=== PATIENT | female | born 1955 | race Caucasian/White ===

== ENCOUNTER 2022-03-27 14:59 | Outpatient (CLI) | payer OTHER, SELFPAY ==
[2022-03-27 15:59] LABS: Chloride* 99 mmol/L (96-114)
[2022-03-27 16:00] LABS: Potassium* 4.3 mmol/L (3.6-5.1); Sodium* 136 mmol/L (135-149)
[2022-03-27 16:02] LABS: Creatinine* 0.7 mg/dL (0.5-1.5); Estimated Glomerular Filt Rate 94 ml/min
[2022-03-27 16:03] LABS: Blood Urea Nitrogen* 18 mg/dL (7-30); Calcium* 9.4 mg/dL (8.4-10.6); Carbon Dioxide* 29 mmol/L (20-32); Glucose* 127 mg/dL (60-115)
== END 2022-03-27 15:00 | disposition home or self-care (01) ==
LOC: NFLDREF 15:00
PROVIDERS: PCP Family Medicine; Visit Provider Family Medicine
DX: E26.81 Bartter's syndrome (principal); E87.6 Hypokalemia
CPT/HCPCS: 80048

== ENCOUNTER 2022-05-22 09:50 | Outpatient (CLI) | payer OTHER, SELFPAY | END 2022-05-22 09:51 | disposition home or self-care (01) | PROVIDERS: PCP Family Medicine; Visit Provider Family Medicine | DX: Z00.00 Encounter for general adult medical examination without abnormal findings (principal); I10 Essential (primary) hypertension; R73.01 Impaired fasting glucose; E78.5 Hyperlipidemia, unspecified; F32.A Depression, unspecified | CPT/HCPCS: 80053; 80061 ==

== ENCOUNTER 2022-05-27 13:00 | Outpatient (CLI) | payer OTHER, SELFPAY ==
--- NOTE | 2022-05-27 13:00 | CRLHL7_ITS ---
For Patients: As a result of the Century Cures Act, medical imaging exams and procedure reports are released immediately into your electronic medical record. You may view this report before your referring provider. If you have questions, please contact your health care provider. BILATERAL SCREENING MAMMOGRAM WITH COMPUTER-AIDED DETECTION AND TOMOSYNTHESIS TECHNIQUE: CC and MLO views were obtained. These mammographic images have been obtained using full-field digital technique. These mammographic images were interpreted with the benefit of computer-aided detection. Breast tomosynthesis was used in this interpretation. COMPARISON FILM: 03/31/21, 01/04/20, 11/04/18. FINDINGS: The breasts are heterogeneously dense, which may obscure small masses. IMPRESSION: There is no radiographic evidence for malignancy. ASSESSMENT: BI-RADS Category 1: Negative RECOMMENDATION: Routine screening mammogram in 1 year. A lay language report of this examination will be provided to the patient. WAYNE ESTEVEZ M.D. Diagnostic Radiologist [email or web address] Transcribed: 05/28/2022, 2:[address]/Dictated by: Wayne Estevez MD @ 05/28/2022 9:50:00 AM (Electronically Signed)
== END 2022-05-27 13:01 | disposition home or self-care (01) ==
LOC: MAMMO 13:01
PROVIDERS: PCP Family Medicine; Visit Provider Family Medicine
DX: Z12.31 Encounter for screening mammogram for malignant neoplasm of breast (principal); R92.2 Inconclusive mammogram
CPT/HCPCS: 77063; 77067

== ENCOUNTER 2023-08-13 13:12 | Outpatient (CLI) | payer OTHER, SELFPAY ==
--- OUTSIDE RECORDS SUMMARY | 2023-08-13 13:15 | XMS_ITS | Clinical Summary ---
Author Organization [facility] Address [address] [place] [address] Care Team Providers Care Glass Embosser Name Role Phone Elsewhere, Pcp Primary Care Provider Unavailabl e Source Comments Patient records contain information from all sites at [facility]. For routine questions regarding patient records, call [phone] during business hours, M-F 8:00 AM - 5:00 PM Central Time. Record requests for emergency care only can be directed to [phone] at any time.[facility] Allergies Active Allergy Reactions Criticality Noted Date Comments Cat Dander Other (see comments) 03/29/2013 House Dust Other (see comments) 03/29/2013 Medications Medication Sig Dispensed Refills Start Date End Date Status cholecalciferol (VITAMIN D3) 50 mcg (2,000 Unit) capsule Take 2,000 Units by mouth daily. Active acetaminophen (TYLENOL) 325 mg tablet Take 325-650 mg by mouth every 6 (six) hours as needed for pain. 03/31/2013 Active clonazePAM (KlonoPIN) 0.5 mg tablet Take 0.25 mg by mouth every morning. 08/05/2009 Active ibuprofen (ADVIL,MOTRIN) 200 mg tablet Take 200-600 mg by mouth every 6 (six) hours as needed for pain. 03/31/2013 Active Lacto.acidophilus-Bi f.animalis 32 billion cell capsule Take 1 capsule by mouth daily. 09/09/2016 Active metoprolol succinate (TOPROL-XL) 25 mg 24 hr tablet Take 12.5 mg by mouth daily. 12/23/2006 Active potassium chloride (KLOR-CON) 20 mEq packet USE 3 PACKETS DIRECTED THREE TIMES DAILY 08/08/2021 Active rosuvastatin (CRESTOR) 5 mg tablet Take 5 mg by mouth daily. 03/11/2021 Active ubiquinone (COENZYME Q10) 100 mg tablet Take 100 mg by mouth daily. Active calcium carbonate-vitamin D3 1,250 mg (500 mg calcium)-5 mcg (200 Unit) per tablet Take 1 tablet by mouth daily with breakfast. Active multivitamin capsule Take 1 capsule by mouth daily. Active PARoxetine (PAXIL) 20 mg tablet Take 20 mg by mouth daily. 12/12/2021 Active tretinoin (RETIN-A) 0.05 % cream Apply 1 application topically daily as needed. Apply to face. (Tends to use about once weekly) Active melatonin 1 mg tablet Take 1 mg by mouth at bedtime. Active biotin 5,000 mcg tablet,disintegratin g Dissolve 5,000 mcg in the mouth daily. Active magnesium oxide (MAG-OX) 400 mg (241.3 mg magnesium) tablet Take 400 mg by mouth 2 (two) times a day before breakfast and dinner. Active vitamin A-vitamin C-vit E-min tablet Take 1 tablet by mouth daily. 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 Specified Anxiety Disorders 03/30/2013 Hypokalemia 03/23/2013 Hypertension Essential Primary 06/13/2012 Family History Medical History Relation Name Comments Melanoma Daughter Mita Hyperlipidemia Father Truong Kidney cancer Father Truong Anxiety disorder Mother Marie Depression Mother Marie Ovarian cancer Mother Marie Parkinson disease Mother Marie Psychiatric Mother Marie Skin cancer Mother Marie Suicide Attempts Mother Marie Coronary artery disease Paternal Grandfather HW Relation Name Status Comments Daughter Mita Father Truong Mother Marie Paternal Grandfather HW Social History Tobacco Use Types Packs/Day Years Used Date Smoking Tobacco: Never Smokeless Tobacco: Never Tobacco Cessation:Counseling Given: Not Answered Alcohol Use Standard Drinks/Week Comments Never 0 (1 standard drink = 0.6 oz pur e alcohol) Humiliation, Afraid, Rape, and Kick questionnair e Answer Date Recorded Within the last year, have y ou been afraid of your partner or ex-partner? No 01/09/2022 Within the last year, have y ou been humiliated or emotionally abused in other ways by your partner or ex-partner? No Within the last year, have y ou been kicked, hit, slapped, or otherwise physically hurt by your partner or ex-partner? No 01/09/2022 Within the last year, have y ou been raped or forced to have any kind of sexual activity by your partner or ex-partner? No 01/09/2022 Social Connection and Isolation Panel [NHANES] A nswer Date Recorded In a typical week, how many times do you talk on the phone with family, friends, or neighbors? Three times a week 01/10/20 22 Frequency of Social Gatherin gs with Friends and Family Not on file 01/09/2022 How often do you attend chur ch or sikh services? 1 to 4 times per year 01/09/2022 Do you belong to any clubs o r organizations such as yarsanism groups, unions, fraternal or athletic groups, or school groups? No 01/09/2022 How often do you attend meet ings of the clubs or organizations you belong to? Never 01/09/2022 Are you , , di vorced, , never , or living with a partner? 01/09/2022 AUDIT-C Answer Date Recorded Q1: How often do you have a drink containing alc ohol? Never 01/09/2022 Average Number of Drinks Not on file 022 Frequency of Binge Drinking Not on file 12/14 Overall Financial Resource Strain (CARDIA) Answe r Date Recorded How hard is it for you to pa y for the very basics like food, housing, medical care, and heating? Not very hard 01/09/2022 [facility] [place] of Occupat ional Health - Occupational Stress Questionnaire Answer Date Recorded Do you feel stress - tense, restless, nervous, or anxious, or unable to sleep at night because your mind is troubled all the time - these days? Not at all 01/09/2022 Exercise Vital Sign Answer Date Recorde d On average, how many days pe r week do you engage in moderate to strenuous exercise (like a brisk walk)? 5 days 01/09/2022 On average, how many minutes do you engage in exercise at this level? 60 min 01/09/2022 Hunger Vital Sign Answer Date Recorded Within the past 12 months, y ou worried that your food would run out before you got the money to buy more. Never true 01/10/20 Within the past 12 months, t he food you bought just didn't last and you didn't have money to get more. Never true 01/09/2022 PRAPARE - Transportation Answer Date Re corded In the past 12 months, has l ack of transportation kept you from medical appointments or from getting medications? No 12/14 In the past 12 months, has l ack of transportation kept you from meetings, work, or from getting things needed for daily living? No 01/09/2022 Housing Stability Vital Sign Answer Giovanni e Recorded In the last 12 months, was t here a time when you were not able to pay the mortgage or rent on time? No 01/09/2022 In the last 12 months, how many places have you lived? 1 01/09/2022 In the last 12 months, was t here a time when you did not have a steady place to sleep or slept in a penitentiary (including now)? No 01/09/2022 Nutrition Answer Date Recorded Nutrition: EVOO Fat Source Yes 01/09 On average, how many serving s of fruits and vegetables do you eat per day (serving size is equal to 1 cup or approximately the size of a tennis ball)? 4-5 01/09/2022 Dental Answer Date Recorded Dental: Regular Dentist Yes 01/10/20 Employment Answer Date Recorded Employment status Unemployed/not in e paid workforce and NOT seeking employment 01/09/2022 Education Answer Date Recorded What is the highest level of school you have completed or the highest degree you have received? Bachelor's degree (e.g., BA, AB, BS) 01/09/2022 Sex and Gender Information Value Date Recorded Sex Assigned at Not on file Gender Identity Female 08/19/2021 8:21 AM CDT Sexual Orientation Straight 08/19/2021 8: 21 AM CDT Last Filed Vital Signs Vital Sign Reading Time Taken Comments Blood Pressure 111/54 01/14/2022 10:10 AM CDT Pulse 57 01/14/2022 10:09 AM CDT Temperature 36.9 ??C (98.4 ??F) 01/14/2022 10:10 AM C DT Respiratory Rate 16 01/14/2022 8:05 AM CDT Oxygen Saturation 97% 01/14/2022 10:10 AM CDT Inhaled Oxygen Concentration - - Weight 75.1 kg (165 lb 9.1 oz) 01/12/2022 7:17 A M CDT Height 174.5 cm (5' 8.7) 01/12/2022 7:17 AM CDT Body Mass Index 24.66 01/12/2022 7:17 AM CDT Plan of Treatment Health Maintenance Due Date Last Done Comments CT Colonography 1953 Colonoscopy 1955 FIT 1955 Hepatitis C Screening 1955 Mammogram 1955 Office Visit for Blood Press ure Check / Re-check 01/09/2023 01/09/2022 Depression Screening (Annual PHQ-2) 03/15/2023 Fall Risk Screen (Annual) 03/15/2023 COVID-19 Vaccine (2022-2 4 season) 2023 03/16/2023, 02/21/2022, 10/07/2021, Additional history exists Pneumococcal vaccine (65+ ye ars) (3 of 3 - PPSV23 or PCV20) 09/21/2023 09/20/2018, 08/25/2017 Cologuard 04/30/2024 04/30/2021 Colorectal Cancer Screening 04/30/2024 Fasting Glucose for Diabetes Screening 01/13/2025 01/13/2022, 01/13/2022, 01/12/2022, Additional history exists DTaP,Tdap,and Td Vaccines (2 - Td or Tdap) 08/26/2027 08/25/2017 Zoster Vaccines Completed 05/27/2018, 08/25/2017 Bone Density Scan (Osteoporo sis Screen) Discontinued 08/19/2021 Influenza Vaccine Completed 03/16/2023, , 01/28/2021, Additional history exists Procedures Procedure Name Priority Date/Time Associated Diagnosis Comments BASIC METABOLIC PANEL, S/P Routine 01/13/2022 6:26 AM CDT from Last 3 Months or Most Recently Relevant to Health Maintenance Results * Basic Metabolic Panel (01/13/2022 6:26 AM CDT) Potassium, S 4.0 3.6 - 5.2 mmol/L 01/13/2022 7:43 AM CDT DTL Sodium, S 136 135 - 145 mmol/L 01/13/2022 7:43 AM CDT DTL Chloride, S 98 98 - 107 mmol/L 01/13/2022 7:43 AM CDT DTL Bicarbonate, S 28 22 - 29 mmol/L 01/13/2022 7:43 AM CDT DTL Anion Gap 10 7 - 15 01/13/2022 7:43 AM CDT DTL BUN (Blood Urea Nitrogen), S 19 6 - 21 mg/dL 01/13/2022 7:43 AM CDT DTL Creatinine 0.87 0.59 - 1.04 mg/dL 01/13/2022 7:43 AM CDT DTL Estimated GFR (eGFR) 73 >=60 mL/min/BSA 01/13/2022 7:43 AM CDT DTL Comment: Estimated GFR calculated using the 2020 CKD_EPI creatinine equation. Calcium, Total, S 8.9 8.8 - 10.2 mg/dL 01/13/2022 7:43 AM CDT DTL Glucose, S 95 70 - 140 mg/dL 01/13/2022 7:43 AM CDT DTL Blood (Blood, Venous) 01/13/2022 6:26 AM CDT 01/13/2022 7:22 AM CDT Darlene Strong Capp, M.D. LAB BLOOD ADD-ON [facility] [address] [place] [address], [facility] DTL [facility] [address] [place] [address] from Last 3 Months or Most Recently Relevant to Health Maintenance Advance Directives For more information, please contact: [phone] * Full Code (Latest Code Status on File) Date Activated Date Inactivated Comments 01/12/2022 2:16 PM 01/14/2022 1:03 PM Question Answer Comments Full Code: Not Discussed Due to: Not medically appropriate * Full Code Date Activated Date Inactivated Comments 01/12/2022 6:47 AM 01/12/2022 2:16 PM Question Answer Comments Full Code: Not Discussed Due to: Patient not available Care Teams Glass Embosser Relationship Specialty Start Date End Date Elsewhere, Pcp PCP - General Internal Medicine 01/08/22
--- OUTSIDE RECORDS SUMMARY | 2023-08-13 13:15 | XMS_ITS | Clinical Summary ---
Author Organization [facility] Address [address] [place] [address]. [place] [address] Care Team Providers Care Program Therapist Name Role Phone Wayne Durand MD Primary Care Provider [phone] Social History Tobacco Use Types Packs/Day Years Used Date Smoking Tobacco: Never Assessed Sex and Gender Information Value Date Recorded Sex Assigned at Not on file Gender Identity Not on file Sexual Orientation Not on file Plan of Treatment Not on file Care Teams Program Therapist Relationship Specialty Start Date End Date Wayne Durand MD [facility] [address] [place] [address] [place] [place] [phone] PCP - General Nephrology 10/14/12
--- OUTSIDE RECORDS SUMMARY | 2023-08-13 13:15 | XMS_ITS | Continuity of Care Document ---
Author Organization [facility] Address [address] [address] [place] [address] Phone Care Team Providers Care Ip Paralegal Name Role Phone Inocente French MD Unavailable Unavailable Medications Medication Instructions Dosage Effective Dates (start - stop) Status Comments MiralaxBisacodylMagCit Colon Prep Use as directed - Active MoviPrep 100 g-7.5 g-2.691 g-4.7 g Oral Powder Packet Use as directed - Active Advance Directives Directive Yes / No Effective Date File Name No Information Encounters Encounter Description Practice Location Reason(s) For Visit Diagnoses Date Provider Providers Copied on Encounter [facility], [address] [address], [place], [place], [id number], tel:[phone] [facility] No Information [address] [facility], [place], [place], [id number], . tel:[phone] [facility], [address] [address], [place], [place], [id number], [place] tel:[phone] No Information 7 No Information Referring Provider: Wayne Rousseau, [address], [place], [address]. tel:[phone] [facility], [address] [address], [place], [place], [id number], [place] tel:[phone] [facility] No Information 3 No Information Referring Provider: Wayne Rousseau, [address], [place], [address]. tel:[phone] Family History Family Member Type Diagnosis Age At Onset No Information Payers Payer name Insurance type Covered green party ID Authoriza tion(s) No Information Social History Type Description Quantity Date Captured Comments Sex Female Smoking Status No Information Chief Complaint And Reason For Visit No Information Reason For Referral Reason For Referral No Information History Of Present Illness Encounter Date Complaint History Of Prese nt Illness No Information Functional Status Date Functional Assessmen t No Information Instructions Date Instruction Additional Infor mation No Information Assessments Type Assessment Date No Information Patient Care Teams Name Effective Dates (start - stop) Status Members No Information
--- OUTSIDE RECORDS SUMMARY | 2023-08-13 13:15 | XMS_ITS | Clinical Summary ---
Author Organization [facility] Address [address] [place] [address] Phone Care Team Providers Care Temperature Regulator Pyrometer Name Role Phone Mita Yoo MD Primary Care Provider [phone] Allergies Active Allergy Reactions Criticality Noted Date Comments Cat Hair Extract Other (see comments) 4 Dust Mite Extract Runny nose 03/29/2013 Medications Medication Sig Dispensed Refills Start Date End Date Status clonazePAM (KlonoPIN) 0.5 MG tablet Take 0.25 mg by mouth 1 (one) time each day 06/13/2012 Active PARoxetine (PAXIL) 20 MG tablet Take 10 mg by mouth 1 (one) time each day 06/13/2012 Active Multiple Vitamin (MULTIVITAMIN) capsule Take 1 daily 0 09/09/2016 Active Multiple Vitamins-Minerals (OCUVITE-LUTEIN) capsule Take by mouth daily 0 09/09/2016 Active Krill Oil [place]-3 500 MG capsule Take 1 tab daily 0 06/13/2012 Active acetaminophen (TYLENOL) 325 MG tablet Take 325-650 mg by mouth if needed 03/31/2013 Active cholecalciferol (VITAMIN D-3) 50 MCG (1999 UT) capsule Take 2,000 Units by mouth 1 (one) time each day Active ibuprofen (ADVIL) 200 MG tablet Take 200-600 mg by mouth if needed 03/31/2013 Active Magnesium 250 MG tablet Take 500 mg by mouth in the morning and 500 mg in the evening. Active rosuvastatin (CRESTOR) 5 MG tablet Take 5 mg by mouth 1 (one) time each day Active metoprolol succinate XL (TOPROL-XL) 25 MG 24 hr tabletIndications:Es sential (primary) hypertension Take 0.5 tablets (12.5 mg total) by mouth 1 (one) time each day 45 tablet 3 08/20/2022 08/20/2023 Active potassium chloride (KLOR-CON) 20 MEQ packetIndications:Ba rtter's syndrome (CMS-HCC) Take 60 mEq by mouth in the morning and 60 mEq in the evening and 60 mEq before bedtime. 810 packet 3 08/20/2022 08/20/2023 Active Active Problems Problem Noted Date Diagnosed Date Bartter's syndrome 09/09/2016 Hypokalemia 03/23/2013 Hypomagnesemia 03/23/2013 Essential (primary) hypertension 06/13/2012 Immunizations Name Administration Dates Next Due Influenza (IM) Preservative Free 01/16/2013 Family History Medical History Relation Comments Malignant neoplastic disease Father Malignant neoplastic disease Mother Heart disease Relative Relation Status Comments Father Mother Relative Social History Tobacco Use Types Packs/Day Years Used Date Smoking Tobacco: Never Smokeless Tobacco: Never Alcohol Use Standard Drinks/Week Comments Yes 0 (1 standard drink = 0.6 oz pur e alcohol) Alcoholic Drinks/day: rare Sex and Gender Information Value Date Recorded Sex Assigned at Not on file Gender Identity Not on file Sexual Orientation Not on file Last Filed Vital Signs Vital Sign Reading Time Taken Comments Blood Pressure 132/67 08/20/2022 11:28 AM CDT Pulse 58 08/20/2022 11:28 AM CDT Temperature 36.8 ??C (98.3 ??F) 08/20/2022 1 1:28 AM CDT Respiratory Rate 16 07/23/2021 2:19 PM CDT Oxygen Saturation 93% 08/20/2022 11: 28 AM CDT Inhaled Oxygen Concentration - - Weight 78.8 kg (173 lb 12.8 oz) 07/23/2021 2:19 PM CDT Height 170.2 cm (5' 7) 08/20/2022 11:2 8 AM CDT Body Mass Index 27.22 07/23/2021 2:19 PM CDT Plan of Treatment Upcoming Encounters Date Type Department Care Team (Late st Contact Info) Description 10/20/2023 3:30 PM MDT Office Visit [facility] [address] [facility] [address] [place] [address] Wayne Durand MD [address] [facility] [address] [place] [address] Health Maintenance Due Date Last Done Comments Pneumococcal PPSV23/PCV13 65 + Years / High and Highest Risk (2 of 4 - PPSV23 or PCV20) 11/15/2018 09/20/2018 Influenza Vaccine (Season Ended) 2023 11/14/2019, 11/07/2019, 01/04/2018, Additional history exists Insurance Payer Benefit Plan / Group Subscriber ID Effective Dates Phone Address Type PM INTERFACED INSURANCE PM INTERFACED INSURANCE - OPEN 2021-Prese nt [address] [place] [address] PM INTERFACED INSURANCE PM INTERFACED INSURANCE - OPEN 2012-03/[birth year] [address] [address] [place] [address] Care Teams Temperature Regulator Pyrometer Relationship Specialty Start Date End Date Mita Yoo MD [address] [place] [address] PCP - General Internal Medicine 05/24/20
--- OUTSIDE RECORDS SUMMARY | 2023-08-13 13:15 | XMS_ITS | Referral Summary ---
Author Organization [facility] Address [address] [place] [address] Care Team Providers Care Tape Edge Machine Operator Name Role Phone Elsewhere, Pcp Primary Care Provider Unavailabl e Source Comments Patient records contain information from all sites at [facility]. For routine questions regarding patient records, call [phone] during business hours, M-F 8:00 AM - 5:00 PM Central Time. 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 1 to 4 times per year 01/09/2022 Do you belong to any clubs o r organizations such as islam groups, unions, fraternal or athletic groups, or [...] care, and heating? Not very hard 01/09/2022 [facility] [place] of Occupat ional Health - Occupational Stress [...] money to buy more. Never true 01/10/20 22 Within the past 12 months, t he [...] place to sleep or slept in a jail (including now)? No 01/09/2022 Nutrition Answer Date Recorded Nutrition: EVOO Fat Source Yes 01/09 On average, how many serving s of fruits and vegetables do you eat per day (serving size is equal to 1 cup or approximately the size of a tennis ball)? 4-5 01/09/2022 Dental Answer Date Recorded Dental: Regular Dentist Yes 01/10/20 Employment Answer Date Recorded Employment status Unemployed/not in th e paid workforce and NOT seeking employment [...] 01/12/2022 7:17 AM CDT Plan of Treatment Not on file Procedures Procedure Name Priority Date/Time Associated Diagnosis [...] Darlene Strong Capp, M.D. LAB BLOOD ADD-ON [facility] [address] [place] [address], [place] DTL [facility] [address] [place] [address] from Last 3 Months or Most Recently Relevant to Health Maintenance Advance Directives For more information, please contact: [phone] * Full Code (Latest Code Status on File) Date Activated Date Inactivated Comments 01/12/2022 2:16 PM 01/14/2022 1:03 PM Question Answer Comments Full Code: Not Discussed Due to: Not medically appropriate * Full Code Date Activated Date Inactivated Comments 01/12/2022 6:47 AM 01/12/2022 2:16 PM Question Answer Comments Full Code: Not Discussed Due to: Patient not available Care Teams Tape Edge Machine Operator Relationship Specialty Start Date End Date Elsewhere, Pcp PCP - General Internal Medicine 01/08/22
--- OUTSIDE RECORDS SUMMARY | 2023-08-13 13:15 | XMS_ITS | Clinical Summary ---
Author Organization [facility] Address [place], [place] [address] Care Team Providers Care Materials Management Supervisor Name Role Phone Mita Yoo MD Primary Care Provider + Allergies Active Allergy Reactions Criticality Noted Date Comments Cats (Fur, Dander, Saliva) Runny Nose 4 House Dust Runny Nose 03/29/2013 Mite Extract Runny Nose 03/29/2013 Medications Medication Sig Dispensed Refills Start Date End Date Status paroxetine (PAXIL) 20 mg tabletIndications :Other general symptoms(780.99) Take 1 tablet by mouth every morning. 0 08/05/2009 Active clonazepam (KLONOPIN) 0.5 mg tabletIndications :Other general symptoms(780.99) Take 1 tablet by mouth 2 times daily if needed. 0 08/05/2009 Active potassium chloride (KLOR-CON 8) 8 mEq CR tabletIndications :Other general symptoms(780.99) Take 1 tablet by mouth once daily with a meal. 0 08/05/2009 Active multivitamin (MVI) tablet Take 1 tablet by mouth once daily. Active magnesium 250 mg tab Take 250 mg by mouth once daily. Active metoprolol (LOPRESSOR) 25 mg tablet Take 25 mg by mouth 2 times daily. Active omega-3 fatty acids-vitamin E (FISH OIL) 1,000 mg cap Take 1 capsule by mouth. Active SELENIUM ORAL Take 1 Tab by mouth once daily. Active cholecalciferol (VITAMIN D-3) 2,000 unit capsule Take 2,000 Units by mouth once daily. Active vitamin B complex (B COMPLEX 1) tablet Take 1 tablet by mouth once daily. Active UBIDECARENONE (COENZYME Q10) 100 mg tab Take 1 capsule by mouth once daily. Active BETA-CAROTENE,A, W-C & E/MIN (OCUVITE ORAL) Take 1 tablet by mouth once daily. Active acetaminophen (TYLENOL) 325 mg tablet Take 1-2 tablets by mouth every 4 hours if needed for Pain. Max acetaminophen dose: 4000mg in 24 hrs. 100 tablet 0 03/31/2013 Active ibuprofen (ADVIL; MOTRIN) 200 mg tablet Take 1-3 tablets by mouth every 6 hours if needed for Pain. 100 tablet 0 03/31/2013 Active rosuvastatin (CRESTOR) 5 mg tablet Take 5 mg by mouth. 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 03/30/2013 Urinary, incontinence, stress female 02/07/2013 Overview: With low valsalva leak point pressures on multichannel urodynamics Fibroids 02/07/2013 Family history of ovarian cancer 02/07/2013 Immunizations Name Administration Dates Next Due Influenza, High-dose Inactivated 12/27/2018 Influenza, IIV3 (Age >=3 years) 01/25/20 14,01/15/2013,04/01/2012,2009,02/19/2003 Influenza, IIV4 11/14/2019,11/07/2019,01/04/2018 Influenza, Inactivated AIIV4 (Age 65+ Years) Preserv Free 01/28/2021 Influenza,CCIIV4 PRESERV FREE 01/14/2017 Pneumococcal Poly,23-Valent (Pneumovax) 08/25/2017 Pneumococcal conj 13-Valent (Prevnar 13) 09/20/2018 Tdap 08/25/2017 Zoster (Shingrix-RZV, recombinant) 05/27/2018, Family History Medical History Relation Name Comments Hypertension Father Cancer-ovarian Mother Other Mother Parkinson's Thyroid Disease Sister hypothyroid Cancer-breast No Family History Cancer-colon No Family History Cancer-prostate No Family History Relation Name Status Comments Father Mother Sister Social History Tobacco Use Types Packs/Day Years Used Date Smoking Tobacco: Never Smokeless Tobacco: Never Alcohol Use Standard Drinks/Week Comments Yes 0 (1 standard drink = 0.6 oz pur e alcohol) rare Sex and Gender Information Value Date Recorded Sex Assigned at Not on file Gender Identity Not on file Sexual Orientation Not on file Obstetrics History Last Filed Vital Signs Vital Sign Reading Time Taken Comments Blood Pressure 127/69 07/14/2021 1:33 PM CDT Pulse 59 07/14/2021 1:33 PM CDT Temperature 36.7 ??C (98.1 ??F) 07/14/2021 1:33 PM CD T Respiratory Rate 16 03/30/2013 11:00 PM SENIOR MEDICAL BILLING SPECIALIST Oxygen Saturation 94% 03/30/2013 11:00 PM SENIOR MEDICAL BILLING SPECIALIST Inhaled Oxygen Concentration - - Weight 76.2 kg (168 lb) 07/14/2021 1:33 PM CDT Height 170.2 cm (5' 7) 07/14/2021 1:33 PM CDT Body Mass Index 26.31 07/14/2021 1:33 PM CDT Plan of Treatment Health Maintenance Due Date Last Done Comments Depression screening for age 12+ 1965 Hepatitis C screening for ag e 18-79 07/12/1971 Colonoscopy through age 75 1998 Lipids for age 45-75 1998 Mammogram for age 45-75 07/25/2013 07/26/19, 04/02/2011, 09/06/2007, Additional history exists DEXA/DXA scan for age 65+ 2018 04/02/2011 BMI (ht and wt on same day) for age 18+ 07/14/2022 07/14/2021 COVID-19 vaccine series ( season) 2022 01/28/2021, 05/01/2020, 04/10/2020 Pneumococcal series for age 65+ (3 of 3 - PPSV23 or PCV20) 09/21/2023 09/20/2018, 08/25/2017 Influenza for age 65+ 11/14/2023 01/28/2021 , 11/14/2019, 11/07/2019, Additional history exists Tetanus booster 08/26/2027 08/25/2017 Tdap Completed 08/25/2017 Zoster (shingles) series for age 50+ Completed 05/27/2018, 08/25/2017 Medical Devices Implanted Type Area Media Law Faculty Member Device Identifier Shelf Expiration Date Model / Serial / Lot Sldino [id number] - [id number] Implanted:Qty: 1 on 03/30/2013 at [facility] N/A: Urethra [facility] [id number]# / / [id number] Procedures Procedure Name Priority Date/Time Associated Diagnosis Comments XR MAMMO BILAT SCREEN FFDM (IA) Routine 07/25/2012 1:36 PM CDT Other screening mammogram XR DXA BONE DENSITY 2 SITES AXIAL Routine 04/02/2011 2:24 PM SENIOR MEDICAL BILLING SPECIALIST Menopausal symptoms from Last 3 Months or Most Recently Relevant to Health Maintenance Results * XR MAMMO BILAT SCREEN FFDM (07/25/2012 1:36 PM CDT) Anatomical Region Laterality Modality BREASTS, Breast Left, Breast Right Bilateral Mammography Impressions 07/25/2012 1:58 PM CDT ??There is no radiographic evidence for malignancy. ??Recommend annual mammograms. A lay language report of this examination will be provided to the patient. MAMMOGRAM ASSESSMENT: ??ACR 1 Negative Narrative 07/25/2012 1:58 PM CDT XR MAMMO BILAT SCREEN FFDM [G0202.0] CLINICAL HISTORY: ??This is an asymptomatic 57 y.o. patient. INDICATION FOR EXAM: Mammogram Screening. TECHNIQUE: CC & MLO views were obtained. ??This digital study was evaluated with the assistance of Computer-Aided Detection. ?? COMPARISON FILM: Yes 04/02/11 [facility] 09/06/07 [facility] FINDINGS: ??Mammographically, the breast tissue has scattered fibroglandular densities (approximately 25% - 50% glandular). ??There are no dominant masses, suspicious micro calcifications or areas of architectural distortion. Procedure Note Tasha Durant MD - 07/25/2012 XR MAMMO BILAT SCREEN FFDM [G0202.0] CLINICAL HISTORY: This is an asymptomatic 57 y.o. patient. INDICATION FOR EXAM: Mammogram Screening. TECHNIQUE: CC & MLO views were obtained. This digital study was evaluatedwith the assistance of Computer-Aided Detection. COMPARISON FILM: Yes 04/02/11 [facility] 09/06/07 [facility] FINDINGS: Mammographically, the breast tissue has scatteredfibroglandular densities (approximately 25% - 50% glandular). There areno dominant masses, suspicious micro calcifications or areas ofarchitectural distortion. IMPRESSION: There is no radiographic evidence for malignancy. Recommendannual mammograms. A lay language report of this examination will be provided to the patient. MAMMOGRAM ASSESSMENT: ACR 1 Negative Laura Bowling MD MAMMO * XR DEXA BONE DENSITY 2 SITES (04/02/2011 2:24 PM SENIOR MEDICAL BILLING SPECIALIST) Anatomical Region Laterality Modality Spine, HIPS, HIPL, HIPR Bone Den sitometry Impressions 04/05/2011 6:26 PM SENIOR MEDICAL BILLING SPECIALIST Normal findings with no increased fracture risk identified. The scan details are available in the patient? s chart on [employer]. A new tool has been developed which may be very helpful for your patients. It is the WHO Fracture Risk Assessment Tool and it calculates the 10 year probability of fracture. ??This is for patients who are not being treated, to help in the decision of when to treat. ??More information and the calculation tool can be found at this website: ?? http://www.shef.ac.uk/FRAX/ Please note: 1. Advancing age is an independent risk factor from low bone mineral density for fragility fracture. 2. In the hip the lowest T-score of the total hip or femoral neck is used. 3. For comparison with previous studies L1 to L4 and the total hip are used because larger areas give better precision. 4. If the BMD has increased or is stable compared to previous studies, the patient is responding satisfactorily according to the International Society for Clinical Densitometry (ISCD). 5. General recommendations for follow-up studies for patients with abnormal bone mineral density: ??Typically one year after initiation or change in therapy is appropriate, with longer intervals once therapeutic effect is established. ??In conditions associated with rapid bone loss, such as glucocorticoid therapy, testing more frequently is appropriate. 6. The International Society for Clinical Densitometry has changed the criteria and now includes perimenopausal women with this data base. Violette Perdomo MD. Breast/Diagnostic Radiologist [facility] BAT/ls Narrative 04/05/2011 6:26 PM SENIOR MEDICAL BILLING SPECIALIST DXA BONE MINERAL DENSITY, 04/02/2011 CLINICAL HISTORY: ??This is a 55-year-old female patient. RISK FACTORS FOR LOW BONE MINERAL DENSITY: ??The patient has estrogen deficiency. TECHNIQUE: ??The patient was scanned on a [employer]pw scanner, fast array scan mode. ??The study was technically adequate. The following sites were used for analysis: ??PA lumbar spine: ??L1 to L4, RIGHT hip: ??Femoral neck, LEFT hip: ??Femoral neck. FINDINGS: BMD T-Score Z-Score Lumbar Spine (L1 to L4) 1.357 g/cm2 +1.5 +1.8 RIGHT Hip (Femoral neck) 1.246 g/cm2 +1.5 +2.2 LEFT Hip (Femoral neck) 1.193 g/cm2 +1.1 +1.8 Procedure Note Violette Perdomo MD - 04/05/2011 DXA BONE MINERAL DENSITY, 04/02/2011 CLINICAL HISTORY: This is a 55-year-old female patient. RISK FACTORS FOR LOW BONE MINERAL DENSITY: The patient has estrogendeficiency. TECHNIQUE: The patient was scanned on a [employer]pw scanner, fastarray scan mode. The study was technically adequate. The following siteswere used for analysis: PA lumbar spine: L1 to L4, RIGHT hip: Femoralneck, LEFT hip: Femoral neck. FINDINGS: BMD T-Score Z-Score Lumbar Spine (L1 to L4) 1.357 g/cm2 +1.5 +1.8 RIGHT Hip (Femoral neck) 1.246 g/cm2 +1.5 +2.2 LEFT Hip (Femoral neck) 1.193 g/cm2 +1.1 +1.8 IMPRESSION: Normal findings with no increased fracture risk identified. The scan details are available in the patient? s chart on [employer]. A new tool has been developed which may be very helpful for your patients.It is the WHO Fracture Risk Assessment Tool and it calculates the 10 yearprobability of fracture. This is for patients who are not being treated,to help in the decision of when to treat. More information and thecalculation tool can be found at this website:http://www.shef.ac.uk/FRAX/ Please note: 1. Advancing age is an independent risk factor from low bone mineraldensity for fragility fracture. 2. In the hip the lowest T-score of the total hip or femoral neck is used. 3. For comparison with previous studies L1 to L4 and the total hip areused because larger areas give better precision. 4. If the BMD has increased or is stable compared to previous studies, thepatient is responding satisfactorily according to the InternationalSociety for Clinical Densitometry (ISCD). 5. General recommendations for follow-up studies for patients withabnormal bone mineral density: Typically one year after initiation orchange in therapy is appropriate, with longer intervals once therapeuticeffect is established. In conditions associated with rapid bone loss,such as glucocorticoid therapy, testing more frequently is appropriate. 6. The International Society for Clinical Densitometry has changed thecriteria and now includes perimenopausal women with this data base. Violette Perdomo MD. Breast/Diagnostic Radiologist [facility] BAT/ls Laura Bowling MD DEXA from Last 3 Months or Most Recently Relevant to Health Maintenance Advance Directives * Full Code (Latest Code Status on File) Date Activated Date Inactivated Comments 03/30/2013 7:41 AM 03/31/2013 6:27 PM Care Teams Materials Management Supervisor Relationship Specialty Start Date End Date Mita Yoo MD [address] [place] [address] PCP - General Family Practice 07/03/21
--- OUTSIDE RECORDS SUMMARY | 2023-08-13 13:15 | XMS_ITS | Referral Summary ---
Author Organization [facility] Address [address] [place] [address]. [place] [address] Care Team Providers Care Forestry Consultant Name Role Phone Wayne Durand MD Primary Care Provider [phone] Social History Tobacco Use Types Packs/Day Years Used Date Smoking Tobacco: Never Assessed Sex and Gender Information Value Date Recorded Sex Assigned at Not on file Gender Identity Not on file Sexual Orientation Not on file Plan of Treatment Not on file Care Teams Forestry Consultant Relationship Specialty Start Date End Date Wayne Durand MD [facility] [address] [place] [address] [place] [phone] PCP - General Nephrology 10/14/12
--- OUTSIDE RECORDS SUMMARY | 2023-08-13 13:15 | XMS_ITS ---
Author Organization [facility] Address [address] [place] [address] Care Team Providers Care Access Assoc Name Role Phone Unavailable Unavailable Unavailable Surgery Details Not on file Complications Check Surgery Details section. Procedure Estimated Blood Loss Check Surgery Details section. Procedure Findings Check Surgery Details section. Procedure Specimens Taken Check Surgery Details section.
--- OUTSIDE RECORDS SUMMARY | 2023-08-13 13:15 | XMS_ITS | Clinical Summary ---
Author Organization [facility] Address [address], [place] [address] Care Team Providers Care Home Care And Home Health Aides Teacher Name Role Phone Mita Yoo MD Primary Care Provider Source Comments You are receiving this document as you are listed as the primary care provider,follow-up provider, or the patient has been referred to you for consultation.This is in compliance with the Medicare and[facility] Hospital[facility] EHR Incentive Program,which states Providers who transition their patient to another setting of careor provider of care or refers their patient to another provider of care shouldprovide summary care record for each transition of care or referral. ImmusanT Allergies No known active allergies Medications Medication Sig Dispensed Refills Start Date End Date Status potassium chloride (KLOR-CON) 20 MEQ packet Take 3 packets by mouth 3 times daily. LW Addl Instr:Dissolve in water/other liquid. Indicated for: Potassium Replacment 12/23/2006 Active triamcinolone (AKA NASACORT) 55 MCG/ACT nasal inhaler Place 1 spray into each nostril daily (every 24 hours). LW Addl Instr:Indicated for: Allergic Rhinitis 11/24/2003 Active UNKNOWN MEDICATION Indications: PN: 12/23/2006 Active metoPROLOL succinate (AKA TOPROL XL) 25 MG 24 hour release tablet Take 0.5 tablets by mouth daily (every 24 hours). LW Addl Instr:Indicated for: High Blood Pressure 12/23/2006 Active PARoxetine (AKA PAXIL) 10 MG tablet Take 0.5 tablets by mouth daily (every 24 hours). LW Addl Instr:Indicated for: Depression 12/23/2006 Active dexamethasone (DECADRON) 4 MG tablet Two tablets today, one tablet tomorrow. 3 Tablet 12/29/2020 Active Additional Information Patient not taking.Reported on 06/11/2021 rosuvastatin (CRESTOR) 5 MG tablet Take 5 mg by mouth daily. 03/11/2021 Active acetaminophen (TYLENOL) 500 MG tablet Take 500-1,000 mg by mouth as needed for Pain. Maximum acetaminophen dose is 4000 mg in 24 hours Active Active Problems No known active problems Social History Tobacco Use Types Packs/Day Years Used Date Smoking Tobacco: Never Smokeless Tobacco: Never Sex and Gender Information Value Date Recorded Sex Assigned at Not on file Gender Identity Not on file Sexual Orientation Not on file Last Filed Vital Signs Vital Sign Reading Time Taken Comments Blood Pressure 129/79 12/29/2020 1:34 PM CDT Pulse 61 12/29/2020 1:34 PM CDT Temperature 36.8 ??C (98.3 ??F) 12/29/2020 1:34 PM CD T Respiratory Rate 20 12/29/2020 1:34 PM CDT Oxygen Saturation 96% 12/29/2020 1:34 PM CDT Inhaled Oxygen Concentration - - Weight 74.8 kg (165 lb) 04/04/2021 3:05 PM FIRESETTER Height 168.9 cm (5' 6.5) 04/04/2021 3:05 PM FIRESETTER Body Mass Index 26.23 04/04/2021 3:05 PM FIRESETTER Plan of Treatment Health Maintenance Due Date Last Done Comments Colon Cancer Screening Plan Due 1955 Hep C Screening (Preventive Services) 1955 Mammogram 1955 Adult Preventive Visit 07/12/1971 Cholesterol 1998 Dexa 2018 COVID-19 Vaccine ( season) 2022 02/21/2022, 10/07/2021, 01/28/2021, Additional history exists Pneumococcal 65+ Yrs (3 - PPSV23 or PCV20) 09/21/2023 09/20/2018, 08/25/2017 Influenza (Season Ended) 11/14/202302/21/ 022, 01/28/2021, 11/14/2019, Additional history exists DTaP/Tdap/Td (2 - Tdap) 08/26/2027 08/25/2017 Zoster/Shingles Completed 05/27/2018, 08/25/2017 HepA Aged Out No longer eligi ble based on patient's age to complete this topic HepB Aged Out No longer eligi ble based on patient's age to complete this topic Hib Aged Out No longer eligi ble based on patient's age to complete this topic IPV ([place]io) Aged Out No longer eligi ble based on patient's age to complete this topic MCV4 Aged Out No longer eligi ble based on patient's age to complete this topic Care Teams Home Care And Home Health Aides Teacher Relationship Specialty Start Date End Date Mita Yoo MD [address] [place] [address] PCP - General Family Practice 04/07/22
--- NOTE | 2023-08-13 13:20 | CRLHL7_ITS ---
For Patients: As a result of the Century Cures Act, medical imaging exams and procedure reports are released immediately into your electronic medical record. You may view this report before your referring provider. If you have questions, please contact your health care provider. BILATERAL SCREENING MAMMOGRAM WITH COMPUTER-AIDED DETECTION AND TOMOSYNTHESIS TECHNIQUE: CC and MLO views were obtained. These mammographic images have been obtained using full-field digital technique. These mammographic images were interpreted with the benefit of computer-aided detection. Breast Tomosynthesis was used in this interpretation. COMPARISON FILM: 05/27/22, 03/31/21, 01/04/20. FINDINGS: The breasts are heterogeneously dense, which may obscure small masses. IMPRESSION: There is no radiographic evidence for malignancy. ASSESSMENT: BI-RADS Category 2: Benign RECOMMENDATION: Routine screening mammogram in 1 year. A lay language report of this examination will be provided to the patient. Wayne Flynn M.D. Diagnostic Radiologist [email or web address] SP/Dictated by: Wayne Flynn MD @ 08/16/2023 10:45:00 AM (Electronically Signed)
== END 2023-08-13 13:13 | disposition home or self-care (01) ==
LOC: MAMMO 13:13
PROVIDERS: PCP Family Medicine; Visit Provider Family Medicine
DX: Z12.31 Encounter for screening mammogram for malignant neoplasm of breast (principal); R92.2 Inconclusive mammogram
CPT/HCPCS: 77063; 77067

== ENCOUNTER 2023-09-23 07:58 | Outpatient (CLI) | payer OTHER, SELFPAY | END 2023-09-23 07:59 | disposition home or self-care (01) | PROVIDERS: PCP Family Medicine; Visit Provider Family Medicine | DX: Z00.00 Encounter for general adult medical examination without abnormal findings (principal); R73.01 Impaired fasting glucose; I10 Essential (primary) hypertension; E78.5 Hyperlipidemia, unspecified; E83.42 Hypomagnesemia | CPT/HCPCS: 80053; 80061; 83735 ==

== ENCOUNTER 2024-01-20 14:50 | Outpatient (CLI) | payer OTHER, SELFPAY ==
--- NOTE | 2024-01-20 15:00 | CRLHL7_ITS ---
For Patients: As a result of the Century Cures Act, medical imaging exams and procedure reports are released immediately into your electronic medical record. You may view this report before your referring provider. If you have questions, please contact your health care provider. DXA BONE MINERAL DENSITY STUDY Current height (in): 67.0. Weight (lb): 165.0. Menopause age: 54. Ethnicity: White. 1. Have you had a previous hip or vertebral fracture? No. 2. Have you had any fractures during your adult life which did not result from significant trauma (e.g., auto accident)? No. 3. Did either of your parents have a hip fracture? No. 4. Do you smoke? No. 5. Have you ever taken Glucocorticoids? No. 6. Do you have rheumatoid arthritis? No. 7. Do you have secondary osteoporosis? No. 8. Do you drink 3 or more alcoholic drinks per day? No. 9. Are you being treated for osteoporosis? No. 10. Have you ever taken any of the following medications: Actonel, Evista, Fosamax, Miacalcin, Reclast, Boniva, Forteo, HRT (i.e. estrogen/hormone therapy), Protelos, Prolia, Vitamin D, Calcium, other ??? please specify. ANSWER: Yes, Vitamin D and calcium. 11. Do you have any of the following medical conditions: Anorexia or bulimia, asthma or emphysema, end stage renal disease, hyperparathyroidism, any seizure disorders, cancer, inflammatory bowel diseases, hysterectomy, other ??? please specify. ANSWER: No. 12. What was your maximum height (inches)? 67.5. 13. Do you perform weight bearing exercise regularly? Yes. 14. Do you regularly consume dairy products? Yes. 15. Do you drink caffeinated beverages? Yes. If female: 16. At what age did your period start? 10. 17. Are you premenopausal? No. 18. How many full term pregnancies have you had? 2. 19. Have you ever missed your period for more than 6 months in a row (not including or menopause)? No. TECHNIQUE: Bone mineral density study was performed using the [employer]. FINDINGS: The results of the study expressed as bone mineral density (BMD) are as follows: Lumbar spine L1 to L4: BMD: 1.029 g/cm2. T-score:-0.2. Z-score: 2.0. Neck Left: BMD: 0.850 g/cm2. T-score: 0.0 . Z-score: 1.8. Right: BMD: 0.959 g/cm2. T-score: 1.0 . Z-score: 2.8. Total Left: BMD: 1.036 g/cm2. T-score: 0.8 . Z-score: 2.3. Right: BMD: 1.098 g/cm2. T-score: 1.3 . Z-score: 2.8. IMPRESSION: Normal bone density. *Comparison exams done prior to 08/2019 were performed on different unit, [employer]. Armani MOLINA:[email or web address] Transcribed: 3:22 p.m. [email or web address] JR/Dictated by: Jeet Dyson MD @ 01/24/2024 9:31:00 AM (Electronically Signed)
== END 2024-01-20 14:51 | disposition home or self-care (01) ==
LOC: RAD 14:51
PROVIDERS: PCP Family Medicine; Visit Provider Family Medicine
DX: Z78.0 Asymptomatic menopausal state (principal)
CPT/HCPCS: 77080

== ENCOUNTER 2024-10-18 14:22 | Outpatient (CLI) | payer OTHER, SELFPAY | END 2024-10-18 14:23 | disposition home or self-care (01) | LOC: NFLDREF 10-23 14:50 | PROVIDERS: PCP Family Medicine; Referring Provider Family Medicine; Visit Provider Family Medicine | DX: I10 Essential (primary) hypertension (principal); E78.5 Hyperlipidemia, unspecified; E83.42 Hypomagnesemia; E87.6 Hypokalemia; F41.1 Generalized anxiety disorder; E26.81 Bartter's syndrome; F32.A Depression, unspecified | CPT/HCPCS: 80053; 80061; 83735 ==

== ENCOUNTER 2024-10-18 15:23 | Outpatient (CLI) | payer OTHER, SELFPAY ==
--- NOTE | 2024-10-18 15:20 | CRLHL7_ITS ---
For Patients: As a result of the Century Cures Act, medical imaging exams and procedure reports are released immediately into your electronic medical record. You may view this report before your referring provider. If you have questions, please contact your health care provider. INDICATION: BILATERAL SCREENING MAMMOGRAM, ASYMPTOMATIC 69 Y/O FEMALE COMPARISON: 08/13/2023, 05/27/2022, 03/31/2021 TECHNIQUE: Digital mammogram in CC and MLO projections including computer-aided detection (CAD) and tomosynthesis. BREAST COMPOSITION: The breasts are heterogeneously dense, which may obscure small masses. FINDINGS: No suspicious findings. ASSESSMENT: BI-RADS 1 Negative RECOMMENDATION: Annual screening mammogram. A lay language report of this examination will be provided to the patient. Dictated by: Wayne Flynn MD @ 10/19/2024 09:14:21 (Electronically Signed)
== END 2024-10-18 15:24 | disposition home or self-care (01) ==
LOC: MAMMO 15:23
PROVIDERS: PCP Family Medicine; Visit Provider Family Medicine
DX: Z12.31 Encounter for screening mammogram for malignant neoplasm of breast (principal); R92.333 Mammographic heterogeneous density, bilateral breasts
CPT/HCPCS: 77063; 77067